=== PATIENT | female | born 1955 | race Caucasian/White ===

== ENCOUNTER 2019-07-13 21:16 | Emergency (ER) | payer BC ==
--- OUTSIDE RECORDS SUMMARY | 2019-07-13 21:38 | XMS REPORT | Continuity of Care Document ---
:1955 External Reference #:[id number] Author Name Shanell Sams NP Address [address] [place] [id number] Care Team Providers Name Role Phone Margarette Barrera DR Care Team Information Training Representative [phone] Problems Active Problems Provider Date Pure hypercholesterolemia Raj Hoffman MD Onset: 10/04/2006 Female stress incontinence Raj Hoffman MD Onset: 04/05/2006 Low back pain Raj Hoffman MD Onset: 09/14/2004 Obesity Raj Hoffman MD Onset: 09/14/2004 Essential hypertension Raj Hoffman MD Onset: 04/14/2015 Family history of breast cancer Raj Hoffman MD Onset: 08/22/2018 Social History Type Date Description Comments Sex Unknown ETOH Use Rarely consumes alcohol Tobacco Use Start: Unknown Patient has never smoked Smoking Status Reviewed: 07/09/19 Patient has never smoked Allergies, Adverse Reactions, Alerts Active Allergies Reaction Severity Comments Date Amoxicillin Rash 04/01/2014 Codeine 09/14/2004 Medications Active Medications SIG Qnty Indications Ordering Date Provider Cyclobenzaprine HCL 1 pill as needed 30tabs M54.2 Dalton, 11/21/2016 5mg for neck or back MD Raj Tablets tightness in the evening. Losartan Potassium Take 1 And 1/2 135tabs I10 Vickyiomichael, 11/21/2016 50mg Tablets By Mouth MD Raj Tablets Every Day. Maximum Daily Dose Is 1.5 Ibuprofen 3-4 tabs by Dalton, 10/07/2014 200mg Capsules mouth three MD Raj times a day as needed with food or snack for pain Vitamin B Complex 1 by mouth every OTC Digiovanna, 10/07/2014 Tablets day MD Raj Acetaminophen 2 PO Q 4 Hours Digiovanna, 325mg Tablets prn Raj Hernandez MD Immunizations CPT Code Status Date Vaccine Reaction Lot # [id number] Given 03/04/2019 Influenza Vac, Quadrivalent, Split, 0.25mL, Im Use Q2039 Given 2018 Flu Vaccine NOS [id number] Given 2018 Influenza Virus Vaccine,Quadrivalent,Split,Pr eserv Free, 0.5mL,Im Q2035 Given 02/14/2017 Afluria Imunization [facility] Q2037 Given 04/10/2016 Fluvirin Immunization [facility] Q2037 Given 04/10/2016 Fluvirin Immunization [facility] [id number] Given 03/16/[address] [facility] Vaccine,Quadrivalent,Split,Pr NOV eserv Free, 0.5mL,Im 19023 Given 02/08/2012 Afluria Or Fluvirin Flu Vac Intramuscular 22081 Given 01/15/2009 Tdap (Adacel) Ages 7 And Above Only Vital Signs Date Vital Result Comment 07/09/2019 10:38am Body Temperature 98.4 F Weight 222.00 lb Heart Rate 72 /min BP Systolic 136 mmHg BP Diastolic 76 mmHg Respiratory Rate 18 /min Height 69.5 inches 5'9.50" BMI (Body Mass Index) 32.3 kg/m2 04/26/2019 1:18pm Weight 222.00 lb Heart Rate 74 /min BP Systolic 130 mmHg BP Diastolic 80 mmHg Respiratory Rate 18 /min Height 69.5 inches 5'9.50" BMI (Body Mass Index) 32.3 kg/m2 Results Description No Information Available Procedures Date Code Description Status 09/19/2018 [id number] Mammogram Completed 09/12/2018 [id number] Mammogram Completed 07/30/2014 [id number] Mammogram Completed 01/18/2012 [id number] Colonoscopy Completed Medical Devices Description No Information Available Encounters Type Date Location Provider Dx Diagnosis Office Visit 04/26/2019 [facility] Raj Hoffman, I10 Essential (primary) 1:30p hypertension E78.00 Pure hypercholesterolemia, unspecified Z80.3 Family history of malignant neoplasm of breast Z12.31 Encntr screen mammogram for malignant neoplasm of breast Z68.32 Body mass index (BMI) 32.0-32.9, adult Assessments Date Code Description Provider 07/09/2019 M54.41 Lumbago with sciatica, RIGHT side Shanell Sams NP 04/26/2019 I10 Essential (primary) hypertension Raj Hoffman MD 04/26/2019 E78.00 Pure hypercholesterolemia, unspecified Raj Hoffman MD 04/26/2019 Z80.3 Family history of malignant neoplasm of Raj Hoffman MD breast 04/26/2019 Z12.31 Encounter for screening mammogram for Raj Hoffman MD malignant neoplasm of breast 04/26/2019 Z68.32 Body mass index (BMI) 32.0-32.9, adult Raj Hoffman MD Plan of Treatment Future Appointment(s):11/07/2019 9:00 am - Raj Hoffman MD at [facility] - Shanell Sams NPM54.41 Lumbago with sciatica, RIGHT sideNew Orders: Physical Therapy, Ordered: 07/09/19Comments:Low back pain. w/right side sciatica todayRecommend continue regular use of NSAIDs for a week then wean to PRN. Take with foodContinue Cyclobenzaprine. Advised medication is sedating and DO NOT operatea motor vehicle while taking. Warm compresses can offer some reliefActivity as tolerated with pain as guideRecommend sleeping in side lying position with pillow between knees for support. Given hx, will put in order for PT. Will schedule self.Follow up:As needed Functional Status Description No Information Available Mental Status Description No Information Available Referrals Description No Information Available
[2019-07-13] MEDS ORDERED: Diazepam TAB(*) 5 MG PO ONE (22:42)
--- NOTE | 2019-07-13 22:44 | ED ---
Back Pain - HPI Summary HPI Summary: 64-year-old female presents to the emergency department with any of right lower back pain. Patient denies any recent trauma but states she has suffered from low back pain due to muscle strain for years. Patient states her back pain recently began approximately one week ago. Patient states she is recently was seen by her PCP for this and gone to physical therapy however after doing physical therapy on her pain has been acutely worse. Patient has no pain on palpation of the midline spine and has no edema, ecchymosis, erythema. Patient has pain with palpation of the right paraspinal muscles in the lumbar spine. Patient denies fevers, chest pain, abdominal pain pump in urination, saddle paresthesia, numbness or tingling, radiculopathy, nausea, vomiting, diarrhea. - History of Current Complaint Chief Complaint: EDBackInjuryPain Stated Complaint: BACK PAIN Time Seen by Provider: 07/13/19 21:43 Hx Obtained From: Patient Onset/Duration: Gradual Onset, Lasting Days Onset/Duration: Started Days Ago Timing: Constant Severity Initially: Severe Severity Currently: Severe Pain Intensity: 10 Pain Scale Used: 0-10 Numeric Character: Aching Aggravating Symptom(s): Movement, Lifting, Bending, Walking Alleviating Symptom(s): Rest Associated Signs And Symptoms: Negative: Swelling, Redness, Bruising, Fever, Weakness, Tingling, Bladder Incontinence, Bowel Incontinence - Allergies/Home Medications Allergies/Adverse Reactions: Allergies Allergy/AdvReac Type Severity Reaction Status Date / Time MS Codeine [Codeine] Allergy Mild Agitation Verified 07/13/19 22:38 MS Iohexol [From Omnipaque] Allergy Mild Hives Verified 01/23/13 09:41 Home Medications: Home Medications Aspirin 81 mg PO DAILY 05/15/12 [History Confirmed 05/15/12] HYDROcodone/ACETAMIN 5-325 MG* 5 mg PO PRN 05/15/12 [History Confirmed 05/15/12] Ibuprofen 400 mg PO PRN 05/15/12 [History Confirmed 05/15/12] Losartan TAB* 50 mg PO DAILY 05/15/12 [History Confirmed 05/15/12] Tylenol 650 mg PO PRN 05/15/12 [History Confirmed 05/15/12] Diazepam TAB(*) [Valium TAB(*)] 10 mg PO Q8H PRN #10 tab MDD 3 03/07/20 [Rx] predniSONE 20 mg TAB [Deltasone 20 MG TAB*] 40 mg PO DAILY #6 tab 07/13/19 [Rx] PMH/Surg Hx/FS Hx/Imm Hx Endocrine/Hematology History: Denies: Hx Diabetes, Hx Systemic Lupus Erythematosus Cardiovascular History: Reports: Hx Hypertension Denies: Hx Congestive Heart Failure History: Denies: Hx Dialysis, Hx Renal Disease Musculoskeletal History: Denies: Hx Rheumatoid Arthritis - Cancer History Hx Chemotherapy: No - Surgical History Surgery Procedure, Year, and Place: GALLBLADDER 06/2009; TUBAL 06/1985; TONSILLECTOMY A CHILD IN 5TH GRADE. Infectious Disease History: No Infectious Disease History: Denies: Traveled Outside the [place] in Last 30 Days - Social History Alcohol Use: Rare Substance Use Type: Reports: None Smoking Status (MU): Never Smoked Tobacco Review of Systems Constitutional: Negative Eyes: Negative ENT: Negative Cardiovascular: Negative Respiratory: Negative Gastrointestinal: Negative Genitourinary: Negative Positive: Arthralgia, Myalgia Skin: Negative Neurological/Mental Status: Negative Psychological: Normal All Other Systems Reviewed And Are Negative: Yes Physical Exam - Summary Physical Exam Summary: Patient is in no acute distress. Patient has pain with palpation of the right paraspinal muscles no pain with palpation of the cervical, thoracic, lumbar spine. Patient has full range of motion of the neck. Patient is able to ambulate. Negative straight leg raise. No evidence of cauda equina or spinal fracture. Triage Information Reviewed: Yes Vital Signs On Initial Exam: Initial Vitals Temp Pulse Resp BP Pulse Ox 97.7 F 91 20 164/91 100 07/13/19 21:21 07/13/19 21:21 07/13/19 21:21 07/13/19 21:21 07/13/19 21:21 Vital Signs Reviewed: Yes Appearance: Positive: Well-Appearing, No Pain Distress, Well-Nourished Skin: Positive: Warm, Skin Color Reflects Adequate Perfusion Eyes: Positive: EOMI, ROMA ENT: Positive: Hearing grossly normal Respiratory/Lung Sounds: Positive: Clear to Auscultation, Breath Sounds Present Cardiovascular: Positive: RRR, S1, S2 Musculoskeletal: Positive: Strength/ROM Intact Neurological: Positive: Sensory/Motor Intact, Alert, Oriented to Person Place, Time, Normal Gait, Facial Symmetry, Speech Normal Psychiatric: Positive: Normal, Affect/Mood Appropriate AVPU Assessment: Alert Procedures - Sedation Patient Received Moderate/Deep Sedation with Procedure: No Diagnostics - Vital Signs Vital Signs Temp Pulse Resp BP Pulse Ox 07/13/19 21:21 97.7 F 91 20 164/91 100 - Laboratory Lab Statement: Any lab studies that have been ordered have been reviewed, and results considered in the medical decision making process. Back Pain Course/Dx - Course Course Of Treatment: Patient evaluated in the emergency department today for back pain. Vitals noted and stable. No evidence of cauda equina or epidural abscess. Patient was given 10 mg of Valium in the emergency department as well as 50 mg of prednisone. Patient symptomology is due to mechanical back pain and lumbar paraspinal muscle strain. Patient given outpatient prescription for prednisone and Valium for back pain and discharged outpatient follow-up with her PCP. - Diagnoses Differential Diagnosis/HQI/PQRI: Positive: Cauda Equina Syndrome, Compressive Cord Syndrome, Epidural Abscess, Fracture, Herniated Disc, Strain, Sprain Provider Diagnoses: Low back pain Discharge ED - Sign-Out/Discharge Documenting (check all that apply): Patient Departure - Discharge Plan Condition: Stable Disposition: HOME Prescriptions: Diazepam TAB(*) [Valium TAB(*)] 10 mg PO Q8H PRN #10 tab MDD 3 PRN Reason: Pain - Severe predniSONE 20 mg TAB [Deltasone 20 MG TAB*] 40 mg PO DAILY #6 tab Patient Education Materials: Low Back Strain (ED) Referrals: Raj Hoffman MD [Primary Care Provider] - 3 Days Additional Instructions: You were seen in the emergency department today for back pain. Please follow up with your primary care physician in 5 days for further evaluation and management of your injury. Please take for your symptoms: * Ibuprofen 600mg three times daily with meals for pain. (Anti Inflammatory) * Flexeril 10mg every 6 hours as needed for pain. (Muscle relaxant) Most people with an episode of low back pain do not have a serious medical problem, and can try simple treatments such as: ?Staying active The best thing you can do is to stay as active as possible. People with low back pain recover faster if they stay active. If your pain is severe, you might need to rest for a day or 2. But it's important to get back to walking and moving as soon as possible. While you should avoid heavy lifting and sports while your back hurts, try to keep doing your normal daily activities. ?Heat Some people find that it helps to use a heating pad or heated wrap. Be careful to avoid high heat settings to prevent skin batista. Spinal manipulation This is when a chiropractor, physical therapist, or other professional moves or "adjusts" the joints of your back. If you want to try this, talk to your doctor or nurse first. Acupuncture This is when someone who knows traditional [place]ri[place] medicine inserts tiny needles into your body to block pain signals. Massage While back pain usually goes away within a few weeks, some people do continue to have pain for longer. In this case, additional treatments might include: ?Self care This involves being aware of your pain. While you should rest when you need to, it's important to stay active as much as you can. Things like applying heat and doing gentle stretches can help you feel better, too. ?Physical therapy A physical therapist is an exercise expert who can teach you stretches and movements to help strengthen your muscles. The goal is to relieve pain but also help you get back to your normal activities. Exercises you can try include walking, swimming, or using an exercise bike. Some people also find that [employer] or yoga can help with their back pain. Finding activities you enjoy can help you stay active. ?Reducing stress Some people find that it helps to try something called "mindfulness-based stress reduction." This involves going to a group program to practice relaxation and meditation. If your back pain is making you feel anxious or depressed, talk to your doctor or nurse. There are other treatments that can help with these problems. Only a small number of people end up needing surgery to treat back pain. - Billing Disposition and Condition Condition: STABLE Disposition: Home
[2019-07-13 23:46] VITALS: BP 128/74
== END 2019-07-13 23:45 | disposition home or self-care (01) ==
LOC: ED 21:16
DX: M54.5 Low back pain (principal); I10 Essential (primary) hypertension; Z79.82 Long term (current) use of aspirin; Z79.899 Other long term (current) drug therapy; Z88.5 Allergy status to narcotic agent; Z91.041 Radiographic dye allergy status
CPT/HCPCS: 99282; A9270-GY; J7512